=== PATIENT | male | born 1975 | race Caucasian/White ===

== ENCOUNTER 2023-05-28 15:39 | Outpatient (CLI) | payer BC, SELFPAY ==
[2023-05-28 21:13] LABS: Iron 87 ug/dL (49-181)
[2023-05-28 21:24] LABS: Percent Iron Saturation 29 % (20-50)
== END 2023-05-28 15:40 | disposition home or self-care (01) ==
LOC: ANHGOSHLAB 15:41
PROVIDERS: PCP Internal Medicine; Visit Provider Internal Medicine
DX: R79.0 Abnormal level of blood mineral (principal)
CPT/HCPCS: 36415; 83540; 83550